=== PATIENT | female | born 1985 ===

== ENCOUNTER → 2022-03-05 16:49 | Outpatient (CLI) | payer OTHER, SELFPAY ==
--- NOTE | ~2022-03-05 | MR_ITS ---
EXAMINATION: MR cervical spine wo con DATE: 03/05/2022 17:38 INDICATION: Neck pain. TECHNIQUE: Magnetic resonance imaging (MRI) of the cervical spine was performed without intravenous c ontrast. Sequences included sagittal T2-weighted FSE, sagittal T2-weighted FS FSE, sagittal T1-weight ed FSE, axial MERGE, and axial T2-weighted FSE. COMPARISON: None FINDINGS: There is kyphosis of cervical spine. Vertebral body heights and intervertebral disc heights are normal. The spinal cord signal intensity is normal. The following disc levels are specifically d iscussed: C2-C3: The disc does not extend beyond the endplate margin. There is no uncovertebral joint osteoarth ritis. There is mild right and moderate left facet joint osteoarthritis. There is no neural foraminal stenosis. There is no central canal stenosis. C3-C4: The disc does not extend beyond the endplate margin. There is mild bilateral uncovertebral suzette nt osteoarthritis. There is moderate bilateral facet joint osteoarthritis. There is no neural foramin al stenosis. There is mild central canal stenosis. C4-C5: The disc is bulging. There is no uncovertebral joint osteoarthritis. There is moderate right a nd mild left facet joint osteoarthritis. There is no neural foraminal stenosis. There is mild central canal stenosis. C5-C6: The disc is bulging. There is mild bilateral uncovertebral joint osteoarthritis. There is no f acet joint osteoarthritis. There is no neural foraminal stenosis. There is mild central canal stenosi s. C6-C7: There is a central protrusion. There is mild right uncovertebral joint osteoarthritis. There i s no facet joint osteoarthritis. There is no neural foraminal stenosis. There is no central canal michelle nosis. C7-T1: The disc does not extend beyond the endplate margin. There is no uncovertebral joint osteoarth ritis. There is mild right and moderate left facet joint osteoarthritis. There is mild left neural fo raminal stenosis. There is no central canal stenosis. IMPRESSION: 1. Mild cervical spondylosis. Reviewed, dictated and finalized at location E.
== END ==
PROVIDERS: PCP Family Medicine; Visit Provider Family Medicine
DX: M47.892 Other spondylosis, cervical region (principal)
CPT/HCPCS: 72141

== ENCOUNTER 2024-06-10 08:44 | Emergency (ER) | payer OTHER, SELFPAY ==
[2024-06-10 09:13] VITALS: BP 122/90; PULSE 94; RESP 16; TEMP 36.4; O2SAT 99
--- NOTE | 2024-06-10 09:17 | ED.URI ---
HPI - URI/Sore Throat General Chief Complaint: Upper Respiratory Infection Stated Complaint: sore throat History of Present Illness [facility] Narrative: Patient is a 39-year-old female, past medical history significant for thyroid dysfunction, presents to [facility] with complaints of sore throat, rhinorrhea, postnasal drainage and feeling warm last night. she denies known sick contacts, she has not had a fever, she has no cough. She states that her sore throat seems more severe than her typical allergy related sore throat now has prompted her visit. Related Data Home Medications Medication Instructions Recorded Confirmed albuterol sulfate 90 mcg/actuation 2 inh inhalation PRN PRN Shortness 06/10/24 06/10/24 aerosol inhaler Of Breath Or Wheezing levothyroxine 25 mcg tablet 25 mcg PO DAILY 06/10/24 06/10/24 Allergies Allergy/AdvReac Type Severity Reaction Status Date / Time iodine Allergy Severe Anaphylaxis Verified 06/10/24 09:03 shrimp Allergy Severe Anaphylaxis Verified 06/10/24 09:03 SHELLFISH Allergy Severe Anaphylaxis Uncoded 06/10/24 09:03 Review of Systems ENT: Comments: Refer to [facility] Family History Family History (Updated 06/05/18 @ 00:00 by CONVUSER A) Mother Asthma Mother Hypertension Father Hypertension Social History Social History Smoking status: Never smoker Alcohol intake: current Exam Const: General: healthy appearing, no acute distress and alert Nutritional Appearance: well nourished Orientation/consciousness: patient oriented x3 Limitations: no limitations HENMT: Head: normal to inspection Ears: external ears normal and TM abnormal ( Serous pattern present, tympanic sclerosis noted bilaterally, no erythema) Face/Nose/Sinus: Normal external nose present and Normal nares present Face and sinus: normal facial exam and sinuses nontender Mouth: Yes Normal oral and palatal mucosa present Teeth and gingiva: dentition normal Throat: posterior oropharynx normal and uvula midline Eyes: Conjunctivae: conjunctivae normal Pupils: Equal, round and reactive pupils present EOM: EOMs intact bilaterally Direct Ophthalmoscopy: no photophobia Neck: Neck: normal visual inspection, no lymphadenopathy and no meningeal signs Chest: Chest palpation & inspection: normal inspection of the chest Resp: Effort & Inspection: normal respiratory effort Auscultation: clear to auscultation bilaterally Cardio: Rate: regular rate Rhythm: regular rhythm Skin: General skin exam: normal color Rashes: no rashes Wounds: no wounds Neuro: General: patient oriented x3, moves all extremities, no meningeal signs, no focal motor deficits and CN's II-XI intact bilaterally Cranial nerves: Yes Nystagmus not present Speech: normal speech Gait exam (Neuro): Normal gait present Extrem: General: normal to inspection and no clubbing, cyanosis or edema Course Course Emergency Course: strep negative, COVID-19 negative, examination is consistent with viral URI, will treat with short steroid course for serous otitis, [id number] medications such as Flonase, Zyrtec and also are also encouraged. Patient verbalized understanding she is agreeable with plan of care. Level of Care: Express Care Visit ([id number]) Vital Signs Vital signs: Vital Signs Temperature 36.4 C 06/10/24 09:13 Pulse Rate 94 06/10/24 09:13 Respiratory Rate 16 06/10/24 09:13 Blood Pressure 122/90 06/10/24 09:13 Pulse Oximetry 99 06/10/24 09:13 Oxygen Delivery Room Air 06/10/24 09:13 Temperature 36.4 C 06/10/24 09:13 Pulse Rate 94 06/10/24 09:13 Respiratory Rate 16 06/10/24 09:13 Blood Pressure 122/90 06/10/24 09:13 Pulse Oximetry 99 06/10/24 09:13 Oxygen Delivery Room Air 06/10/24 09:13 MDM - URI/Sore Throat MDM Narrative Medical decision making narrative: Strep negative, culture added, COVID-19 negative I will treat for viral URI Differential Diagnosis Differential diagnosi
[2024-06-10 09:30] LABS: EDSTREPNEGPOS1 Negative (Negative)
[2024-06-10 09:42] LABS: EDCOVIDSCREEN Negative (Negative)
== END 2024-06-10 09:36 | disposition home or self-care (01) ==
PROVIDERS: Emergency Provider Nurse Practitioner Family
DX: J06.9 Acute upper respiratory infection, unspecified (principal); H65.03 Acute serous otitis media, bilateral; Z20.822 Contact with and (suspected) exposure to COVID-19
CPT/HCPCS: 87081; 87635; 87880; 99213; G0463

== ENCOUNTER 2025-08-03 08:06 | Emergency (ER) | payer OTHER, SELFPAY ==
--- OUTSIDE RECORDS SUMMARY | 2025-08-03 08:15 | XMS_ITS | Encounter Summary ---
Author Organization [facility] Address [address] [place] [address] Care Team Providers Care Cabinetmaker Maintenance Name Role Phone NighatLucia LMT Unavailable Unavailable Dana Sinclair MD Primary Care Provider [phone] Encounter Details Date Type Department Care Team (Late st Contact Info) Description 06/16/2024 E-Visit [facility] [address] [phone] Dana Sinclair MD [facility] [address] [address] Increasing Thyroid Medication Social History Tobacco Use Types Packs/Day Years Used Date Smoking Tobacco: Never Smokeless Tobacco: Never AUDIT-C Answer Date Recorded Q1: How often do you have a drink containing alc ohol? 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 Author CCM Chronic Pain Care Plan Chronic Care Management Improving( 8:44 AM CDT) Delicia Molina, RN Note: Problem: Chronic Pain Goals: 1. Minimize further functional decline 2. Maximize quality of life 3. Control pain Strategies: - Activity/exercise program recommendation - Conservative stepwise pain medicine strategy with multi-disciplinary approach - Recommend healthy lifestyle strategies and compensatory methods as needed documented as of this encounter Results * T4, free (07/21/2024 7:27 AM CDT) Free T4 1.15 0.90 - 1.70 ng/dL Blood 07/21/2024 7:27 AM CDT 07/21/2024 7:49 AM CDT us Dana Sinclair MD LAB BLOOD ORDERABLES Final Resu lt Performing Organization Address [facility] Co de Phone Number [facility] Department [place] [address] * TSH (07/21/2024 7:27 AM CDT) Thyroid Stimulating Hormone See Comment 0.30 - 4.20 mcIUnit/m L Comment:Credited, duplicate test. Blood 07/21/2024 7:27 AM CDT 07/21/2024 7:49 AM CDT Dana Sinclair MD LAB BLOOD ORDERABLES Final Resu lt Performing Organization Address City/[facility]/ZIP Co de Phone Number [facility] Department [place] [address] documented in this encounter Visit Diagnoses Diagnosis Subclinical hypothyroidism Other specified acquired hypothyroidism documented in this encounter Discontinued Medications Medication Sig Discontinue Reason Start Date End Da te levothyroxine (SYNTHROID) 25 mcg tabletIndications:Subclini ksenia hypothyroidism Take 1 tablet (25 mcg total) by mouth daily Reorder 04/22/2024 06/16/2024 documented as of this encounter Care Teams Cabinetmaker Maintenance Relationship Specialty Start Date End Date Dana Sinclair MD [address] [address] PCP - General Internal Medicine 03/19/23 Lucia Disla LMT Massage Therapy 03/19/23 documented as of this encounter
--- OUTSIDE RECORDS SUMMARY | 2025-08-03 08:15 | XMS_ITS | Clinical Summary ---
Author Organization [facility] Address [address] [facility] [place] [address] Care Team Providers Care Salesperson Stereo Equipment Name Role Phone Jamaal Finch LAURA-INDUCTION MACHINE SETTER Primary Care Provider [phone] Source Comments [facility],non-[facility] Affiliates and Associated Physician Practices is amultiple site organization consisting of ambulatory clinics and hospital sitesin [place], [place], [place] and [place]. This disclosure is being madepursuant to the Care Everywhere program and may not contain all information available regarding this patient. Last updated 18.[facility] [employer] [employer] Allergies Active Allergy Reactions Criticality Noted Date Comments Povidone Iodine Anaphylaxis High 05/24/2017 Shellfish Allergy Anaphylaxis High 05/24/2017 Medications * Be aware that medications may not be up to date on this document. Alwaysverify current medications with the patient. Fluticasone Propionate HFA (FLOVENT HFA IN) Act sebastien ALBUTEROL IN Active EPINEPHrine (EPIPEN) 0.3 MG/0.3ML auto-injector pen Inject 0.3 mg into muscle once Active cetirizine (ZYRTEC) 10 MG tablet Take 10 mg by mouth once daily Active fluticasone propionate (FLONASE) 50 MCG/ACT nasal sprayIndications :Acute pansinusitis, recurrence not specified Doyline 2 sprays into each nostril once daily 1 bottles 02/07/2018 Active VENTOLIN HFA 108 (90 Base) MCG/ACT inhalerIndicatio ns:Medication refill,Mild asthma without complication, unspecified whether persistent (HCC) Inhale 2 puffs by mouth every 6 hours as needed 1 Inhaler 11/01/2019 Active Active Problems No known active problems Family History Medical History Relation Name Comments Hypertension Father Hypertension Mother Asthma Neg Hx Autoimmune Disease Neg Hx Bipolar Disorder Neg Hx Cancer - Breast Neg Hx Cancer - Colon Neg Hx Cancer - Other Neg Hx Cancer - Ovarian Neg Hx Cancer - Pancreatic Neg Hx Cancer - Prostate Neg Hx Depression Neg Hx Eczema Neg Hx Migraine Neg Hx Osteoporosis Neg Hx Seizures Neg Hx Sudd. <30 Neg Hx Thyroid Disease Neg Hx Ulcerative Colitis Neg Hx Relation Name Status Comments Father Alive Mother Alive Social History Tobacco Use Types Packs/Day Years Used Date Smoking Tobacco: Never Smokeless Tobacco: Never Tobacco Cessation:Counseling Given: No Alcohol Use Standard Drinks/Week Comments No 0 (1 standard drink = 0.6 oz pur e alcohol) Comments No Sex and Gender Information Value Date Recorded Sex Assigned at Not on file Legal Sex Female 6:29 AM TRIMMER AND REINFORCER Gender Identity Not on file Sexual Orientation Not on file Last Filed Vital Signs Vital Sign Reading Time Taken Comments Blood Pressure 118/76 11/01/2019 11:40 AM TRIMMER AND REINFORCER Pulse 78 11/01/2019 11:40 AM TRIMMER AND REINFORCER Temperature 37.2 C (99 F) 11/01/2019 11:40 AM TRIMMER AND REINFORCER Respiratory Rate 16 11/01/2019 11:40 AM TRIMMER AND REINFORCER Oxygen Saturation 98% 11/01/2019 11:40 AM TRIMMER AND REINFORCER Inhaled Oxygen Concentration - - Weight 77.1 kg (170 lb) 11/01/2019 11:40 AM TRIMMER AND REINFORCER Height 162.6 cm (5' 4) 11/01/2019 11:40 AM TRIMMER AND REINFORCER Body Mass Index 29.18 11/01/2019 11:40 AM TRIMMER AND REINFORCER Plan of Treatment Health Maintenance Due Date Last Done Comments LIPID TESTING 1983 MAMMOGRAM 1983 HIV SCREENING 1998 HEPATITIS C SCREENING 03/17/2001 DTAP/TDAP/TD VACCINES (1 - Tdap) 2002 HEPATITIS B VACCINE (1 of 3 - 19+ 3-dose series) 2002 HPV VACCINE (1 - 3-dose SCDM series) 2010 DEPRESSION SCREENING 09/30/2024 COVID-19 VACCINE (1 - 2023-2 5 season) 2025 INFLUENZA VACCINE (#1) 2025 ZOSTER VACCINE (1 of 2) 2033 HIB VACCINE Aged Out No longer eligi ble based on patient's age to complete this topic MENINGOCOCCAL (Group B) VACC INE SHARED DECISION-MAKING Aged Out No longer eligibl e based on patient's age to complete this topic MENINGOCOCCAL GROUPS A/C/Y/W VACCINE Aged Out No longer eligible b ased on patient's age to complete this topic PNEUMOCOCCAL VACCINE Aged Out No long er eligible based on patient's age to complete this topic Insurance [facility] Care Teams Salesperson Stereo Equipment Relationship Specialty Start Date End Date Jamaal Finch, COMMERCIAL INSTRUCTOR SUPERVISOR-INDUCTION MACHINE SETTER PCP - General Nurse Practitioner 05/24/17
--- OUTSIDE RECORDS SUMMARY | 2025-08-03 08:15 | XMS_ITS | Clinical Summary ---
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 Nonreactive Comment:This result is consi stent with a lack of immunity to Hepatitis B Virus when used in the setting of routine screening. Current interpretative data was last revised on 22 Blood 07/05/2025 8:39 AM CDT 07/05/2025 9:07 AM CDT us Dana Sinclair MD LAB MICROBIOLOGY - GENERAL ORDE RABLES Final Result Performing Organization Address City/[facility]/ZIP Co de Phone Number [facility] [place] [address] * Hepatitis B Surface Antigen Blood (07/05/2025 8:39 AM CDT) Pathologist [facility] HepBsAg Nonreactive Nonreactive Blood 07/05/2025 8:39 AM CDT 07/05/2025 9:07 AM CDT Dana Sinclair MD LAB MICROBIOLOGY - GENERAL [facility] Final Result Performing Organization Address [facility] Co de Phone Number [facility] Department [place] [address] * T4, free (07/05/2025 8:39 AM CDT) [facility] Free T4 1.38 0.90 - 1.70 ng/dL Blood 07/05/2025 8:39 AM CDT 07/05/2025 9:07 AM CDT Dana Sinclair MD LAB BLOOD ORDERABLES Final Resu lt Performing Organization Address [facility] de Phone Number [facility] Department [place] [address] * Hemoglobin A1c (07/05/2025 8:39 AM CDT) [facility] Hgb A1C 5.2 4.0 - 5.6 % Estimated Average Glucose 103 mg/dL [facility] Comment: The ADA recommends reporting an estimated Average Glucose (eAG) with all Hemoglobin A1c results using the equation derived from a study of 507 normal and diabetic adults. Minority populations were underrepresented and children were not included. (Diabetes Care 2020; 43(S1): S66-S76). The eAG is not equivalent to a fasting glucose. Blood 07/05/2025 8:39 AM CDT 07/05/2025 9:07 AM CDT Dana Sinclair MD LAB BLOOD ORDERABLES Final Resu lt Performing Organization Address [facility] Co de Phone Number [facility] Department [place] [address] * (ABNORMAL) Lipid panel (07/05/2025 8:39 AM CDT) Cholesterol 209(H) 30 - 199 mg/dL Comment: Interpretive Data Ages < or = 19 years Acceptable: <170 mg/dL Borderline high: 170-199 mg/dL High: >or= 200 mg/dL Ages > or = 20 years Desirable: <200 mg/dL Borderline high: 200-239 mg/dL High: >or= 240 mg/dL Literature References: 1. Expert Panel on Integrated Guidelines for Cardiovascular Health and Risk Reduction in Children and Adolescents. Pediatrics 2011;128:S213 2. NCEP Expert Panel. Circulation 2004;110:227 Current Interpretive Data was last revised on 2018. Triglycerides 86 <=149 mg/dL [facility] Comment: Interpretive Data Ages < or = 9 years Acceptable: <75 mg/dL Borderline high: 75-99 mg/dL High: >or= 100 mg/dL Ages 10 to 20 years Acceptable: <90 mg/dL Borderline high: 90-129 mg/dL High: >or= 130 mg/dL Ages > or = 20 years Desirable: <150 mg/dL Borderline high: 150-199 mg/dL High: 200-499 mg/dL Very high: >or= 499 mg/dL Literature References: 1. Expert Panel on Integrated Guidelines for Cardiovascular Health and Risk Reduction in Children and Adolescents. Pediatrics 2011;128:S213 2. NCEP Expert Panel. Circulation 2004;110:227 Current Interpretive Data was last revised on 2018. HDL 51 >=40 mg/dL [facility] Comment: Interpretive Data Ages < or = 19 years Acceptable: >45 mg/dL Borderline low: 40-45 mg/dL Low: <40 mg/dL Ages > or = 20 years Desirable: >or= 60 mg/dL Low: <40 mg/dL Literature References: 1. Expert Panel on Integrated Guidelines for Cardiovascular Health and Risk Reduction in Children and Adolescents. Pediatrics 2011;128:S213 2. NCEP Expert Panel. Circulation 2004;110:227 Current Interpretive Data was last revised on 2018. LDL, calculated 143(H) <=129 mg/dL [facility] Comment: Interpretive Data Ages < or = 19 years Acceptable: <110 mg/dL Borderline high: 110-129 mg/dL High: >or= 130 mg/dL Ages > or = 20 years Optimal: <100 mg/dL Near optimal: 100-129 mg/dL Borderline high: 130-159 mg/dL High: >160 mg/dL Calculated using the Yariel LDL-C estimating equation. This equation was implemented on 2024. Prior to this date LDL-C was estimated using the Friedewald equation. Literature References: 1. Expert Panel on Integrated Guidelines for Cardiovascular Health and Risk Reduction in Children and Adolescents. Pediatrics 2011;128:S213 2. NCEP Expert Panel. Circulation 2004;110:227 3. Yariel Jaimes et al. JANE Cardiol. 2020 January 28;5(5):540-548. doi: 10.1001/jamacardio.2020.0013 Current Interpretive Data was last revised on 2024. Non-HDL Cholesterol 158 mg/dL [facility] Comment: Interpretive Data Ages < or = 19 years Acceptable: <120 mg/dL Borderline high: 120-144 mg/dL High: >145 mg/dL Ages > or = 20 years When triglycerides are >200 mg/dL, Non-HDL cholesterol is a secondary target of therapy with treatment goals that are 30 mg/dL greater than the LDL cholesterol target. Literature References: 1. Expert Panel on Integrated Guidelines for Cardiovascular Health and Risk Reduction in Children and Adolescents. Pediatrics 2011;128:S213 2. NCEP Expert Panel. Circulation 2004;110:227 Current Interpretive Data was last revised on 2018. Chol/HDL ratio 4 [facility] Blood 07/05/2025 8:39 AM CDT 07/05/2025 9:07 AM CDT us Dana Sinclair MD LAB BLOOD ORDERABLES Final Resu lt [facility] [place] [address] * Comprehensive metabolic panel (07/05/2025 8:39 AM CDT) Sodium 141 135 - 145 mmol/L Potassium, pl 3.9 3.3 - 4.9 mmol/L [facility] Chloride 105 97 - 110 mmol/L [facility] CO2 28 22 - 32 mmol/L [facility] Anion gap 8 2 - 15 mmol/L [facility] BUN 12 6 - 25 mg/dL [facility] Creatinine 0.91 0.60 - 1.10 mg/dL [facility] Glucose 90 70 - 199 mg/dL [facility] Comment: Interpretive Data Fasting glucose >/= 126 mg/dl is diagnostic for diabetes. Fasting is defined as no caloric intake for at least 8 hours. Fasting glucose between 100 mg/dl to 125 mg/dl is diagnostic of prediabetes. In a patient with classic symptoms of hyperglycemia or hyperglycemic crisis, a random glucose >/= 200 mg/dl is diagnostic for diabetes. In the absence of unequivocal hyperglycemia, results should be confirmed by repeat testing. The classification and Diagnosis of Diabetes Diabetes Care 2021; 46: S19-S40. Current interpretive data was last revised 2022. Calcium 9.4 8.5 - 10.3 mg/dL [facility] Bilirubin, total 0.5 0.1 - 1.2 mg/dL [facility] Protein, pl 7.9 6.5 - 8.5 g/dL [facility] Albumin 4.0 3.5 - 5.0 g/dL [facility] Alk phos 85 40 - 130 Units/L [facility] ALT 21 7 - 45 Units/L [facility] AST 21 10 - 45 Units/L [facility] Blood 07/05/2025 8:39 AM CDT 07/05/2025 9:07 AM CDT us Dana Sinclair MD LAB BLOOD ORDERABLES Final Resu lt [facility] [place] [address] from Last 3 Months Insurance EMPLOYEES EMPLOYEES EMPLOYEES [facility] [employer] Care Teams Presentation Specialist Relationship Specialty Start Date End Date Dana Sinclair MD [address] [address] PCP - General Internal Medicine 03/19/23 Lucia Disla LMT Massage Therapy 03/19/23
--- OUTSIDE RECORDS SUMMARY | 2025-08-03 08:15 | XMS_ITS | Encounter Summary ---
Author Organization [facility] Address [address] [place] [address] Care Team Providers Care Filing And Polishing Supervisor Name Role Phone NighatLucia LMT Unavailable Unavailable Dana Sinclair MD Primary Care Provider Encounter Details Date Type Department Care Team (Late st Contact Info) Description 07/07/2025 Results Follow-Up [facility] [address] [phone] Dana Sinclair MD [facility] [address] [address] Hepatitis C antibody Blood, Hepatitis B Surface Antigen Blood, Hepatitis B surface antibody (immune status) Blood, Additional followed-up results: 9 Social History Tobacco Use Types Packs/Day Years [...] on file Legal Sex 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 0.5 mL 1 07/07/2025 documented in this encounter Miscellaneous Notes * Result Encounter Note - Dana Sinclair MD - 07/07/2025 4:58 PM CDT The 10-year ASCVD risk score (Melisa HOWELL, et al., 2019) is: 0.7% Values used to calculate the score: Age: 40 years Clincally relevant sex: Female Is Non- : No Diabetic: No Tobacco smoker: No Systolic Blood Pressure: 120 mmHg Is BP treated: No HDL Cholesterol: 51 mg/dL Total Cholesterol: 209 mg/dL documented in this encounter Plan of Treatment Not on file documented as of this encounter Goals Goal Patient Goal Type Associated Problems Recent Progress Patient-Stated? Author CCM Chronic Pain Care Plan Chronic Care Management Improving( 8:44 AM CDT) No Delicia Walker, RN Note: Problem: Chronic Pain Goals: 1. Minimize further functional decline 2. Maximize quality of life 3. Control pain Strategies: - Activity/exercise program recommendation - Conservative stepwise pain medicine strategy with multi-disciplinary approach - Recommend healthy lifestyle strategies and compensatory methods as needed documented as of this encounter Visit Diagnoses Not on filedocumented in this encounter Care Teams Filing And Polishing Supervisor Relationship Specialty Start Date End Date Dana Sinclair MD [address] [address] PCP - General Internal Medicine 03/19/23 Lucia Disla LMT Massage Therapy 03/19/23 documented as of this encounter
--- OUTSIDE RECORDS SUMMARY | 2025-08-03 08:15 | XMS_ITS | Encounter Summary ---
Author Organization [facility] Address [address] [place] [address] Care Team Providers Care Manufacturing Inspector Name Role Phone Nighat Petty. 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
--- OUTSIDE RECORDS SUMMARY | 2025-08-03 08:17 | XMS_ITS ---
Author Organization Unknown ENCOUNTERS Encounter Performer Location Date Diagnosis Diagnosis Status Outpatient [address] [id number] *Note: Encounters from your own facility or health system may be excluded. Allergies, Adverse Reactions, Alerts Allergen Type Severity Identification Date Medications Name Date Quantity Days Supplied GPI Number
[2025-08-03 08:25] VITALS: BP 126/74; PULSE 92; RESP 18; TEMP 36.4; O2SAT 100
[2025-08-03 08:30] LABS: EDSTREPNEGPOS1 Positive (Negative)
--- NOTE | 2025-08-03 08:51 | ED.GENADULT ---
HPI - General Adult General Chief complaint: Upper Respiratory Infection Stated complaint: Sore throat Source: patient Mode of arrival: ambulatory Limitations: no limitations History of Present Illness HPI narrative: Patient presents for evaluation of sick symptoms since yesterday. Symptoms include sinus congestion, sore throat and subjective fever. She has a history of environmental allergies and states her sinus congestion is not new. She takes fzju-whx-frfqzcj allergy medicine and Flonase. Her sore throat is consistent with previous bouts of strep throat. She is not aware of any specific sick contacts, although she works on a [employer] campus. No chills, nausea, vomiting, diarrhea, cough or SOB. She does not smoke. Related Data Home Medications ?Medication ?Instructions ?Recorded ?Confirmed ?Last Taken ?Type albuterol sulfate 90 mcg/actuation 2 inh inhalation PRN PRN Shortness 06/10/24 08/03/25 Unknown History aerosol inhaler Of Breath Or Wheezing levothyroxine 25 mcg tablet 25 mcg PO DAILY 06/10/24 08/03/25 Unknown History bimatoprost 0.01 % eye drops drp 08/03/25 Unknown History (Alia) Allergies Allergy/AdvReac Type Severity Reaction Status Date / Time iodine Allergy Severe Anaphylaxis Verified 08/03/25 08:08 shrimp Allergy Severe Anaphylaxis Verified 08/03/25 08:08 SHELLFISH Allergy Severe Anaphylaxis Uncoded 06/10/24 09:03 Review of Systems Review of Systems: CONSTITUTIONAL: Reports subjective fever. Denies chills, or sweats. EYES: Denies visual changes, redness, or discharge. ENT: Reports sore throat in sinus congestion. Denies rhinorrhea, congestion, or otalgia. CARDIOVASCULAR: Denies chest pain, palpitations, or edema. RESPIRATORY: Denies cough or dyspnea. GASTROINTESTINAL: Denies abdominal pain, nausea, vomiting, or diarrhea. GENITOURINARY: Denies dysuria or hematuria. SKIN: Denies rash or itching. MUSCULOSKELETAL: Denies back pain, joint pain, or myalgia. NEUROLOGIC: Denies headache, numbness, dizziness, or weakness. PSYCHIATRIC: Denies anxiety or depression. [facility] Past Medical History Medical History Asthma Surgical History Surgical History No pertinent past surgical history Family History Family History Mother Asthma Mother Hypertension Father Hypertension Social History Social History Smoking status: Never smoker Alcohol intake: current Substance use: never Gender identity (if verbalized by the patient): Female Spiritual care concerns: No Exam Narrative: GENERAL: Well-appearing, well-nourished, and in no acute distress. HEAD: Normocephalic, atraumatic. EYES: PERRLA and EOMI. ENT: Nares clear, no rhinorrhea or epistaxis. Mucous membranes moist. There is posterior pharyngeal erythema without exudate. Uvula is midline. Bilateral TMs pearly holm nonbulging NECK: Supple. No adenopathy or masses. No carotid bruits or JVD CHEST: Clear to auscultation. No respiratory distress. No wheezes rales or rhonchi HEART: Regular rate and rhythm. No murmur heard. Normal peripheral pulses. ABDOMEN: Soft, nontender, nondistended, normal active bowel sounds. EXTREMITIES: Normal range of motion. No edema. SKIN: Warm, dry, no rash. NEURO: No focal deficits. Alert and oriented x3. PSYCH: Normal mood and affect. Course Course Emergency Course: This is a 40-year-old female who presented for evaluation of sore throat. Rapid strep positive. Will treat with amoxicillin. Increase hydration. Kjxg-sxo-jcrksge agents for symptom management. Follow up with primary provider. Go to the ER for worsening symptoms. Patient in agreement with plan care. Level of Care: Express Care Visit Vital Signs Vital signs: Vital Signs Temperature 36.4 C 08/03/25 08:25 Pulse Rate 92 08/03/25 08:25 Respiratory Rate 18 08/03/25 08:25 Blood Pressure 126/74 08/03/25 08:25 Pulse Oximetry 100 08/03/25 08:25 Oxygen Delivery Room Air 08/03/25 08:25 Temperature 36.4 C 08/03/25 08:25 Pulse Rate 92 08/03/25 08:25 Respiratory Rate 18 08/03/25 08:25 Blood Pressure 126/74 08/03/25 08:25 Pulse Oximetry 100 08/03/25 08:25 Oxygen Delivery Room Air 08/03/25 08:25 Medical Decision Making Vital Signs Vital Signs: Vital Signs Temperature 36.4 C 08/03/25 08:25 Pulse Rate 92 08/03/25 08:25 Respiratory Rate 18 08/03/25 08:25 Blood Pressure 126/74 08/03/25 08:25 Pulse Oximetry 100 08/03/25 08:25 Oxygen Delivery Room Air 08/03/25 08:25 Temperature 36.4 C 08/03/25 08:25 Pulse Rate 92 08/03/25 08:25 Respiratory Rate 18 08/03/25 08:25 Blood Pressure 126/74 08/03/25 08:25 Pulse Oximetry 100 08/03/25 08:25 Oxygen Delivery Room Air 08/03/25 08:25 Lab Data Labs: Lab Results 08/03/25 Range/Units 08:28 POC Grp A Strep Screen Positive (Negative) Discharge Plan Discharge Clinical Impression: Strep throat Patient Disposition: Home Condition: Stable Instructions: Antibiotic Form, Strep Throat (ED) Patient Language: Wolof Prescriptions: New amoxicillin 500 mg tablet 500 mg PO Q12H Qty: 20 0RF No Action levothyroxine 25 mcg tablet 25 mcg PO DAILY albuterol sulfate 90 mcg/actuation HFA aerosol inhaler 2 inh INHALATION PRN PRN (Reason: Shortness Of Breath Or Wheezing) Lumigan 0.01 % drops Follow-up/Referrals: Yahir,Dana Garrett [Other] Time of Disposition: 08:38
== END 2025-08-03 08:39 | disposition home or self-care (01) ==
PROVIDERS: Emergency Provider Nurse Practitioner
DX: J02.0 Streptococcal pharyngitis (principal)
CPT/HCPCS: 87880; 99213; G0463

== ENCOUNTER 2025-08-30 08:01 | Emergency (ER) | payer OTHER, SELFPAY ==
--- OUTSIDE RECORDS SUMMARY | 2025-08-30 08:07 | XMS_ITS | Clinical Summary ---
Author Organization [facility] Address [address] [place] [address] Care Team Providers Care Capacity Analyst Name Role Phone Unavailable Primary Care Provider Unavailabl e Social History Tobacco Use Types Packs/Day Years Used Date Smoking Tobacco: Never Assessed Comments Unknown Sex and Gender Information Value Date Recorded Sex Assigned at Not on file Legal Sex Female 7:58 PM CDT Gender Identity Not on file Sexual Orientation Not on file Last Filed Vital Signs Vital Sign Reading Time Taken Comments Blood Pressure 108/62 06/23/2013 1:42 PM CDT Pulse 84 06/23/2013 1:42 PM CDT Temperature - - Respiratory Rate - - Oxygen Saturation - - Inhaled Oxygen Concentration - - Weight 64 kg (141 lb) 06/23/2013 1:42 PM CDT Height - - Body Mass Index - - Plan of Treatment Health Maintenance Due Date Last Done Comments Cervical Cancer Screening Pa p Smear (Age 30 to 64) Every 3 Years 1983 Annual Physical 1986 Hepatitis C 2001 Hepatitis B Vaccines (1 of 3 - 19+ 3-dose series) 2002 HPV Vaccines (1 - 3-dose SCD M series) 2010 Cervical Cancer Screening Pa p with HPV Testing (Age 30 to 64) Every 5 Years 2013 Cervical Cancer Screening with HPV 2013 DTaP, Tdap and Td Vaccines ( 2 - Td or Tdap) 02/16/2023 02/16/2013 Mammogram Screening 2023 COVID-19 Vaccine (2024-2 6 season) 2025 Influenza Adult (#1) 2025 Hepatitis A Vaccines Aged Out No long er eligible based on patient's age to complete this topic Meningococcal B Vaccine Aged Out No l onger eligible based on patient's age to complete this topic Meningococcal Vaccine Aged Out No jose rick eligible based on patient's age to complete this topic Pneumococcal Vaccine: Pediat rics (0 to 5 Years) and At-Risk Patients (6 to 49 Years) Aged Out No longer eligi ble based on patient's age to complete this topic RSV Immunizations Under 20 Months Aged Out No longer eligible based on patient's age to complete this topic
--- OUTSIDE RECORDS SUMMARY | 2025-08-30 08:07 | XMS_ITS | Encounter Summary ---
Author Organization [facility] Address [address] [place] [address] Care Team Providers Care Mark Up Designer Name Role Phone Nighat Petty. 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
--- OUTSIDE RECORDS SUMMARY | 2025-08-30 08:07 | XMS_ITS | Encounter Summary ---
Author Organization [facility] Address [address] [place] [address] Phone Care Team Providers Care Master Ocean Name Role Phone Lucia Disla LMT Unavailable Unavailable Dana Sinclair MD Primary Care Provider [phone] Encounter Details Date Type Department Care Team (Late st Contact Info) Description 08/20/2025 Results Follow-Up [facility] Medicine Obstetrics and Gynecology [address] [facility] 7th Floor [address] [place] [address] Jessica Morocho NP [address] [facility] [address] [place] [address] Pap and High Risk HPV and Genotyping (Cytology Component) Social History Tobacco Use Types Packs/Day Years Used Date Smoking Tobacco: Never Smokeless Tobacco: Never PHQ-2 Answer Date Recorded PHQ-2 Total Score (If total score is 3 or more points, staff should administer the PHQ-9) 0 03/16/2024 AUDIT-C Answer Date Recorded Frequency of Alcohol Consumption Not on file 08/12/2025 Q2: How many drinks containi ng alcohol do you have on a typical day when you are drinking? 1 or 2 08/12/2025 Q3: How often do you have si x or more drinks on one occasion? 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
--- OUTSIDE RECORDS SUMMARY | 2025-08-30 08:08 | XMS_ITS | Encounter Summary ---
Author Organization [facility] Address [address] [place] [address] Care Team Providers Care Structural Analysis Engineer Name Role Phone NighatLucia EDGARDOT Unavailable Unavailable Dana Sinclair MD Primary Care Provider Encounter Details Date Type Department Care Team (Late st Contact Info) Description 07/07/2025 Results Follow-Up [facility] [address] [phone] Dana Sinclair MD [facility] [address] [address] Hepatitis C antibody Blood, Hepatitis B Surface [...] on file Legal Sex Female 8:50 PM SOLUTION LEAD Gender Identity Female 01/23/2023 10:26 PM CDT [...] COVID: Suspected 08/09/2025 08/09/2025 08/09/2025 8:10 PM SOLUTION LEAD documented as of this encounter Care Teams Structural Analysis Engineer Relationship Specialty Start Date End Date Dana Sinclair MD [address] [address] PCP - General Internal Medicine 03/19/23 Hamilton, Petty., LMT Massage Therapy 03/19/23 documented as of this encounter
--- OUTSIDE RECORDS SUMMARY | 2025-08-30 08:08 | XMS_ITS | Clinical Summary ---
Author Organization [facility] Address [address] [place] [address] Care Team Providers Care Reel Assembler Name Role Phone Jamaal Finch LAURA-SCIENCE EDITOR Primary Care Provider [phone] Source Comments [facility] Affiliates and Associated Physician Practices is amultiple site organization consisting of ambulatory clinics and hospital sitesin [place], [place], [place] and [place]. This disclosure is being madepursuant to the Care Everywhere program and may not contain all information available regarding this patient. 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 Gender Identity Not on file Sexual Orientation Not on file Last Filed Vital Signs Vital Sign Reading Time Taken Comments Blood Pressure 118/76 11/01/2019 11:40 AM MOTION PICTURE PHOTOGRAPHER Pulse 78 11/01/2019 11:40 AM MOTION PICTURE PHOTOGRAPHER Temperature 37.2 C (99 F) 11/01/2019 11:40 AM MOTION PICTURE PHOTOGRAPHER Respiratory Rate 16 11/01/2019 11:40 AM MOTION PICTURE PHOTOGRAPHER Oxygen Saturation 98% 11/01/2019 11:40 AM MOTION PICTURE PHOTOGRAPHER Inhaled Oxygen Concentration - - Weight 77.1 kg (170 lb) 11/01/2019 11:40 AM MOTION PICTURE PHOTOGRAPHER Height 162.6 cm (5' 4) 11/01/2019 11:40 AM MOTION PICTURE PHOTOGRAPHER Body Mass Index 29.18 11/01/2019 11:40 AM MOTION PICTURE PHOTOGRAPHER Plan of Treatment Health Maintenance Due Date Last Done Comments LIPID TESTING 1983 MAMMOGRAM 1983 HIV SCREENING 1998 HEPATITIS C SCREENING 03/17/2001 DTAP/TDAP/TD VACCINES (1 - Tdap) 2002 HEPATITIS B VACCINE (1 of 3 - 19+ 3-dose series) 2002 PAP SMEAR 2004 HPV VACCINE (1 - 3-dose SCDM series) 2010 Cervical Cancer Screening 2013 PAP with HPV 2013 DEPRESSION SCREENING 09/30/2024 COVID-19 VACCINE (1 - 2024-2 6 season) 2025 INFLUENZA VACCINE (#1) 2025 ZOSTER [...] patient's age to complete this topic Insurance [id number] Care Teams Reel Assembler Relationship Specialty Start Date End Date Jamaal Finch, BULL GANG WORKER-SCIENCE EDITOR PCP - General Nurse Practitioner 05/24/17
--- OUTSIDE RECORDS SUMMARY | 2025-08-30 08:08 | XMS_ITS | Clinical Summary ---
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 ORDERABLES Final Resu lt Performing Organization Address City/[facility]/ZIP Co de Phone Number [facility] [place] [place] [address] * Hepatitis C antibody Blood (07/05/2025 8:39 AM CDT) [facility] Hep C Ab Nonreactive Nonreactive Comment:Antibodies to HCV no t detected. Does NOT exclude the possibility of recent exposure to HCV. Current interpretive data was last revised on 22 Blood 07/05/2025 8:39 AM CDT 07/05/2025 9:07 AM CDT us Dana Sinclair MD LAB MICROBIOLOGY - GENERAL ORDArley ROMERO Final Result Performing Organization Address City/[facility] Co de Phone Number [facility] [place] [address] * Hepatitis B core antibody, total Blood (07/05/2025 8:39 AM CDT) Hep B core IgG/IgM Nonreactive Nonreactive Blood 07/05/2025 8:39 AM CDT 07/05/2025 9:07 AM CDT us Dana Sinclair MD LAB MICROBIOLOGY - GENERAL ORDE HEATHER Final Result Performing Organization Address [facility] Co de Phone Number [facility] [place] [address] * Hepatitis B surface antibody (immune status) Blood (07/05/2025 8:39 AM CDT) HBsAb (immune status) Nonreactive Comment:This result is consi stent with a lack of immunity to Hepatitis B Virus when used in the setting of routine screening. Current interpretative data was last revised on 22 Blood 07/05/2025 8:39 AM CDT 07/05/2025 9:07 AM CDT us Dana Sinclair MD LAB MICROBIOLOGY - GENERAL CIRILO ROMERO Final Result Performing Organization Address City/[facility] [place] [address] * Hepatitis B Surface Antigen Blood (07/05/2025 8:39 AM CDT) HepBsAg Nonreactive Nonreactive Blood 07/05/2025 8:39 AM CDT 07/05/2025 9:07 AM CDT us Dana Sinclair MD LAB MICROBIOLOGY - GENERAL ORDArley ROMERO Final Result Performing Organization Address City/[facility] Co de Phone Number [facility] [place] [address] * T4, free (07/05/2025 8:39 AM CDT) Free T4 1.38 0.90 - 1.70 ng/dL Blood 07/05/2025 8:39 AM CDT 07/05/2025 9:07 AM CDT Dana Sinclair MD LAB BLOOD ORDERABLES Final Resu lt Performing Organization Address [facility] [place] [address] * Hemoglobin A1c (07/05/2025 8:39 AM CDT) [facility] Hgb A1C 5.2 4.0 - 5.6 % Estimated Average Glucose 103 mg/dL [facility] Comment: The ADA recommends reporting an estimated [...] ORDERABLES Final Resu lt Performing Organization Address [facility] [place] [address] * (ABNORMAL) Lipid panel (07/05/2025 8:39 AM [...] revised on 2018. Triglycerides 86 <=149 mg/dL [facility] Comment: Interpretive Data Ages < or = [...] revised on 2018. HDL 51 >=40 mg/dL [facility] Comment: Interpretive Data Ages < or = [...] on 2018. LDL, calculated 143(H) <=129 mg/dL [facility] Comment: Interpretive Data Ages < or = [...] revised on 2024. Non-HDL Cholesterol 158 mg/dL [facility] Comment: Interpretive Data Ages < or = [...] last revised on 2018. Chol/HDL ratio 4 [facility] Blood 07/05/2025 8:39 AM CDT 07/05/2025 9:07 AM CDT us Dana Sinclair MD LAB BLOOD ORDERABLES Final Resu lt [facility] [place] [address] * Comprehensive metabolic panel (07/05/2025 8:39 AM CDT) Sodium 141 135 - 145 mmol/L Potassium, pl 3.9 3.3 - 4.9 mmol/L [facility] Chloride 105 97 - 110 mmol/L [facility] CO2 28 22 - 32 mmol/L [facility] Anion gap 8 2 - 15 mmol/L [facility] BUN 12 6 - 25 mg/dL [facility] Creatinine 0.91 0.60 - 1.10 mg/dL [facility] Glucose 90 70 - 199 mg/dL [facility] Comment: Interpretive Data Fasting glucose >/= 126 [...] classification and Diagnosis of Diabetes Diabetes Care 202; 46: S19-S40. Current interpretive data was last revised 2022. Calcium 9.4 8.5 - 10.3 mg/dL [facility] Bilirubin, total 0.5 0.1 - 1.2 mg/dL [facility] Protein, pl 7.9 6.5 - 8.5 g/dL [facility] Albumin 4.0 3.5 - 5.0 g/dL [facility] Alk phos 85 40 - 130 Units/L [facility] ALT 21 7 - 45 Units/L [facility] AST 21 10 - 45 Units/L [facility] Blood 07/05/2025 8:39 AM CDT 07/05/2025 9:07 AM CDT us Dana Sinclair MD LAB BLOOD ORDERABLES Final Resu lt [facility] Department [place] [address] from Last 3 Months Insurance [facility] [employer] HMO/PPO Address: [place] [address] [employer] H[employer]/PPO Address: [place] [address] [employer] HMO/PPO Address: [place] [address] [employer] HMO/PPO Address: [facility] [address] [place] [address] Care Teams Housekeeper Caregiver Relationship Specialty Start Date End Date Dana Sinclair MD [address] [address] PCP - General Internal Medicine 03/19/23 Lucia Disla LMT Massage Therapy 03/19/23
--- OUTSIDE RECORDS SUMMARY | 2025-08-30 08:08 | XMS_ITS | Encounter Summary ---
Author Organization [facility] Address [address] [place] [address] Care Team Providers Care Restaurant Cook Name Role Phone Lucia Disla LMT Unavailable Unavailable Dana Sinclair MD Primary Care Provider [phone] Encounter Details Date Type Department Care Team ([facility] st Contact Info) Description 08/10/2025 Results Follow-Up [facility] [address] [place] [address] Astrid Willingham, SLAB WORKER [address] [address] Respiratory pathogen panel Nasopharyngeal Social History Tobacco Use Types Packs/Day Years [...] on file 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 1 or 2 08/12/2025 9:41 AM Kelly Flores C MA Q3: How often do you have six or more drinks on one occasion? Less than monthly 08/12/2025 9:41 AM Kelly Flores C MA documented as of this encounter Ordered Prescriptions Prescription Sig Dispense Quantity Refills Last Filled Start Date End Date doxycycline (VIBRAMYCIN) 100 mg capsuleIndications: Acute non-recurrent maxillary sinusitis Take 1 tablet/caps ule (100 mg total) by mouth 2 (two) times a day for 10 days 20 tablet/capsule 08/10/2025 08/20/2025 documented in this encounter Plan of Treatment [...] documented as of this encounter Visit Diagnoses Diagnosis Acute non-recurrent maxillary sinusitis- Primary documented in this encounter Care Teams Restaurant Cook Relationship Specialty Start Date End Date Dana Sinclair MD [address] [address] PCP - General Internal Medicine 03/19/23 Lucia Disla LMT Massage Therapy 03/19/23 documented as of this encounter
--- OUTSIDE RECORDS SUMMARY | 2025-08-30 08:08 | XMS_ITS | Encounter Summary ---
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 [place] [address] * TSH (07/21/2024 7:27 AM CDT) Thyroid Stimulating Hormone See Comment 0.30 - 4.20 mcIUnit/m L Comment:Credited, duplicate test. Blood 07/21/2024 7:27 AM CDT 07/21/2024 7:49 AM CDT Dana Sinclair MD LAB BLOOD ORDERABLES Final Resu lt Performing Organization Address City/[facility]/ZIP Co de Phone [facility] [place] [address] documented in this encounter Visit Diagnoses Diagnosis Subclinical hypothyroidism Other specified acquired hypothyroidism documented in this encounter Discontinued Medications Medication Sig Discontinue Reason Start Date End Da te levothyroxine (SYNTHROID) 25 mcg tabletIndications:Subclini ksenia hypothyroidism Take 1 tablet (25 mcg total) by mouth daily Reorder 04/22/2024 06/16/2024 documented as of this encounter Additional Health Concerns Infection Onset Date Last Indicated Resolved Time COVID: Suspected 08/09/2025 08/09/2025 08/09/2025 8:10 PM AUXILIARY ENGINEER documented as of this encounter Care Teams Sagger Maker Relationship Specialty Start Date End Date Dana Sinclair MD [address] [address] PCP - General Internal Medicine 03/19/23 Lucia Disla LMT Massage Therapy 03/19/23 documented as of this encounter
[2025-08-30 08:10] VITALS: BP 117/80; PULSE 80; RESP 18; TEMP 36.2; O2SAT 100
--- OUTSIDE RECORDS SUMMARY | 2025-08-30 08:11 | XMS_ITS ---
Author Organization Unknown ENCOUNTERS Encounter Performer Location Date Diagnosis Diagnosis Status Outpatient [address] [id number] *Note: Encounters from your own facility or health system may be excluded. Allergies, Adverse Reactions, Alerts Allergen Type Severity Identification Date Medications Name Date Quantity Days Supplied GPI Number
--- NOTE | 2025-08-30 08:13 | ED.URI ---
HPI - URI/Sore Throat General Chief Complaint: Upper Respiratory Infection Stated Complaint: strep Time Seen by Provider: 08/30/25 08:30 Source: patient and RN notes reviewed Mode of arrival: ambulatory Limitations: no limitations History of Present Illness HPI Narrative: 40-year-old female presents with concern of for sore throat, cough, runny nose, headache. She reports symptoms started a few days ago. She had strep throat a month ago her symptoms feel similar. MD elicited complaint: cough and sore throat Related Data Home Medications ?Medication ?Instructions ?Recorded ?Confirmed ?Last Taken ?Type albuterol sulfate 90 mcg/actuation 2 inh inhalation PRN PRN Shortness 06/10/24 08/03/25 Unknown History aerosol inhaler Of Breath Or Wheezing levothyroxine 25 mcg tablet 25 mcg PO DAILY 06/10/24 08/03/25 Unknown History bimatoprost 0.01 % eye drops drp 08/03/25 Unknown History ([place]) cetirizine 10 mg capsule (All Day 10 mg PO DAILY PRN allergy symptoms 08/30/25 08/30/25 Unknown History Allergy (cetirizine)) Allergies Allergy/AdvReac Type Severity Reaction Status Date / Time iodine Allergy Severe Anaphylaxis Verified 08/03/25 08:08 shrimp Allergy Severe Anaphylaxis Verified 08/03/25 08:08 SHELLFISH Allergy Severe Anaphylaxis Uncoded 06/10/24 09:03 Review of Systems Review of Systems: CONSTITUTIONAL: Denies malaise, chills, sweats, or fever. EYES: Denies visual changes, redness, or discharge. ENT: Reports rhinorrhea, postnasal drainage sore throat. Denies congestion, sinus pain, otalgia CARDIOVASCULAR: Denies chest pain, palpitations, or edema. RESPIRATORY: Reports cough. Denies dyspnea. GASTROINTESTINAL: Denies abdominal pain, nausea, vomiting, diarrhea SKIN: Denies rash or itching. MUSCULOSKELETAL: Denies myalgia. NEUROLOGIC: Reports headache. All systems reviewed & are unremarkable except as noted in HPI and below PMFSH Past Medical History Medical History Asthma Surgical History Surgical History No pertinent past surgical history Family History Family History Mother Asthma Mother Hypertension Father Hypertension Social History Social History Smoking status: Never smoker Alcohol intake: current Substance use: never Gender identity (if verbalized by the patient): Female Spiritual care concerns: No Comments At time of signature, agree with nursing past medical, surgical, social and family history. There is no relevant family history pertinent to the presenting complaint Exam Narrative: GENERAL: Well-appearing, well-nourished, and in no acute distress. HEAD: Normocephalic EYES: PERRLA, conjunctivae clear ENT: Nares clear, turbinates edematous and erythematous, clear discharge. Mucous membranes moist. TM pearly holm with dull light reflex bilaterally; no tragal tenderness. Oropharynx not erythematous without lesions. Tonsils not enlarged and without exudate, no drooling, no hoarseness, no trismus, uvula midline. NECK: Supple. No lymphadenopathy CHEST: Clear to auscultation, breath sounds equal. No wheezing, rhonchi, rales, or stridor. No respiratory distress, speaks in full sentences. HEART: Regular rate and rhythm. No murmur heard. SKIN: Warm, dry, no rash. NEURO: Alert and oriented x3. PSYCH: Normal mood and affect Course Course Emergency Course: Patient is aware of diagnosis, understands and agrees to treatment plan. Anticipatory guidance given. Patient agrees to follow-up as directed and is aware of reasons to seek care at the emergency department. Portions of this record may have been created with voice recognition software Level of Care: Express Care Visit Vital Signs Vital signs: Vital Signs Temperature 97.2 F L 08/30/25 08:10 Pulse Rate 80 08/30/25 08:10 Respiratory Rate 18 08/30/25 08:10 Blood Pressure 117/80 08/30/25 08:10 Pulse Oximetry 100 08/30/25 08:10 Oxygen Delivery Room Air 08/30/25 08:10 Temperature 97.2 F L 08/30/25 08:10 Pulse Rate 80 08/30/25 08:10 Respiratory Rate 18 08/30/25 08:10 Blood Pressure 117/80 08/30/25 08:10 Pulse Oximetry 100 08/30/25 08:10 Oxygen Delivery Room Air 08/30/25 08:10 Reviewed. MDM - URI/Sore Throat MDM Narrative Medical decision making narrative: Differential diagnosis considered: Dunaway virus, strep pharyngitis, allergic rhinitis, upper respiratory tract infection, sinusitis, rhinosinusitis, nasopharyngitis. viral pharyngitis, otitis media, otitis externa, pneumonia, bronchitis, viral cough syndrome, viral syndrome, and influenza. Exam findings show no acute concerns or changes; patient is non-toxic appearing and is in no distress. Patient is appropriate for outpatient treatment and follow-up. Lab Data Attestation: I reviewed the patient's lab results. Critical Care Time Critical Care Time Critical Care Time: No Discharge Plan Discharge Clinical Impression: Upper respiratory infection Patient Disposition: Home Condition: Stable Instructions: Antibiotic Form, Upper Respiratory Infection (ED) Additional Instructions: Your rapid COVID and flu tests are negative Your rapid strep swab was negative today at [facility]. A throat culture will be sent to the laboratory for further testing. If the test is positive, you will receive a phone call within 48 hours and an appropriate antibiotic will be initiated at that time. Your symptoms are likely due to a viral illness, which is not treated with antibiotics. Viral symptoms can be present for up to a few weeks. -Alternate Tylenol and Motrin per package directions for fever or pain. -Antihistamine medication such as Benadryl at night and Zyrtec during the day can help improve symptoms. -Eat and drink things that are easy to swallow, like tea or soup, or popsicles to suck on. -Oral rinses such as: Salt water gargles and/or may use topical anesthetic (eg. Chloraseptic spray) or lozenges to relieve dryness or throat pain). -Frequent hand washing or hand allergist/pediatric pulmonologist is one of the best ways to prevent spread of infection. -Follow up with primary care provider in 2-3 days if condition is not improving; or seek ER visit if you have trouble breathing, cannot drink enough fluids, have muffled voice, difficulty opening your mouth, or severe swelling. Patient Language: Djib[place]ian Prescriptions: New pseudoephedrine HCl [12 Hour Decongestant] 120 mg tablet extended release 120 mg PO Q12H PRN (Reason: nasal congestion) Qty: 12 0RF promethazine-DM 6.25-15 mg/5 mL syrup 5 ml PO Q4-6H PRN (Reason: cough) Qty: 120 0RF No Action levothyroxine 25 mcg tablet 25 mcg PO DAILY albuterol sulfate 90 mcg/actuation HFA aerosol inhaler 2 inh INHALATION PRN PRN (Reason: Shortness Of Breath Or Wheezing) Lumigan 0.01 % drops All Day Allergy (cetirizine) 10 mg capsule 10 mg PO DAILY PRN (Reason: allergy symptoms) Follow-up/Referrals: UNKNOWN,DOCTOR [Primary Care Provider] Time of Disposition: 08:40
[2025-08-30 08:38] LABS: EDCOVIDSCREEN Negative (Negative); EDINFLUASCREEN Negative (Negative); EDINFLUBSCREEN Negative (Negative); EDSTREPNEGPOS1 Negative (Negative)
== END 2025-08-30 08:45 | disposition home or self-care (01) ==
PROVIDERS: Emergency Provider Nurse Practitioner
DX: J06.9 Acute upper respiratory infection, unspecified (principal); Z20.822 Contact with and (suspected) exposure to COVID-19; J45.909 Unspecified asthma, uncomplicated
CPT/HCPCS: 87081; 87426; 87804; 87880; 99213; G0463